=== PATIENT | male | born 1955 | race American Indian/Alaskan Native ===

== ENCOUNTER 2020-06-25 19:49 | Emergency (ER) | payer OTHER, MEDICAID, SELFPAY ==
[2020-06-25 19:50] VITALS: BP 136/90; PULSE 97; RESP 16; TEMP 36.6; O2SAT 97
--- NOTE | 2020-06-25 20:39 | PC.NURSE ---
pt refusing to keep catheter in to go home. states he wants it removed. aware. Removed. about 1100 output in 30 min. pt states he feels much better.
--- NOTE | 2020-06-25 20:40 | PC.NURSE ---
Pt self caths at home. from [place]. here for work. did not bring self cath kits. visit today to have bladder drained. 16F ojeda placed. pt refusing to keep cath in to go home. states he wants it removed. aware and cath taken out.
--- NOTE | 2020-06-26 02:19 | ED_ITS ---
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 He has no other complaints and is reluctant to engage in or answer additional questions. He requests help with bladder drainage. Related Data Home Medications Medication Instructions Recorded Confirmed simvastatin 40 mg PO DAILY 06/25/20 06/25/20 tamsulosin 0.4 mg PO DAILY 06/25/20 06/25/20 Allergies Allergy/AdvReac Type Severity Reaction Status Date / Time No Known Drug Allergies Allergy Verified 06/25/20 20:02 Review of Systems Review of Systems Narrative: Not willing to participate in history or answer questions ROS Unobtainable: Unobtainable due to mental status/LOC Patient History Medical History Self-catheterizes urinary bladder Social History Smoking Status: Current every day smoker Smoking Status: Current every day smoker alcohol intake frequency: 3 or more drinks per day Substance Use Type: does not use Exam Narrative Exam Narrative: General: Alert, in no acute distress somewhat belligerent and smells of alcohol. Reluctant to allow significant exam Respiratory: Able to speak in full sentences, no obvious respiratory distress Skin: No obvious rashes, warm and dry Abdomen: Distended tender Neurologic: Grossly intact no obvious asymmetries or abnormalities Evans catheter placed without difficulty and drains 2 L of clear yellow urine, abdominal distention resolved Initial Vital Signs Initial Vital Signs: Vital Signs Temperature 97.8 F 06/25/20 19:50 Pulse Rate 97 H 06/25/20 19:50 Respiratory Rate 16 06/25/20 19:50 Blood Pressure 136/90 06/25/20 19:50 Pulse Oximetry 97 06/25/20 19:50 Course Vital Signs Vital signs: Vital Signs - 8 hr 06/25/20 19:50 Temperature 97.8 F Pulse Rate 97 H Respiratory Rate 16 Blood Pressure 136/90 Pulse Oximetry 97 MDM - Male Genitourinary MDM Narrative Medical decision making narrative: 65-year-old gentleman who is recalcitrant to explain history, situation or lower exam. He states he needs help with catheterization as he does not have his usual self catheterization tools. Evans catheter is placed draining 2 L. suggested leaving the catheter in due to the significant bladder distention noted and patient was quite adamant to the point of being belligerent in demanding that the catheter be taken out. He states he only lives 2 hours away and will be going home and will have access to his self catheterization tools. Evans catheter is removed and patient is allowed to leave. Discharge Plan Departure Patient Disposition: Home Clinical Impression: Acute retention of urine Instructions: DI for Urinary Retention in Men Activity Restrictions/Additional Instructions: You did not have access to your self catheterization supplies and came in because you are unable to go to the bathroom. You had 2 L of urine in your bladder that drained with a Evans catheter At your request, the catheter was removed. You have said you do have access to your self catheterization supplies within 2 hours. If you have additional concerns, please return to the ER Prescriptions: No Action simvastatin 40 mg tablet 40 mg PO DAILY RF: 0 tamsulosin 0.4 mg capsule 0.4 mg PO DAILY RF: 0
== END 2020-06-25 20:45 | disposition home or self-care (01) ==
PROVIDERS: Emergency Provider Emergency Medicine
DX: R33.8 Other retention of urine (principal)
CPT/HCPCS: 51701; 99281; 99283